=== PATIENT | male | born 1970 | race Hispanic/Latino ===

== ENCOUNTER 2017-12-11 19:29 | Emergency (ER) | payer SELFPAY ==
[2017-12-11] MEDS ORDERED: CYCLOBENZAPRINE HCL 10 MG TABLET ONE (19:49)
[2017-12-11] MEDS ORDERED: KETOROLAC TROMETHAMINE 60 MG/2 ML VIAL ONE (19:49)
[2017-12-11] MEDS ORDERED: DEXAMETHASONE SOD PHOSPHATE 10MG/ML 1ML VIAL ONE (19:49)
[2017-12-11] MEDS ORDERED: ONDANSETRON ODT 4 MG TAB ONE (19:50)
[2017-12-11] MEDS ORDERED: MORPHINE SULFATE 4 MG/1ML SYG ONE (19:50)
== END 2017-12-11 20:19 | disposition home or self-care (01) ==
LOC: EDH 19:29
DX: M54.5 Low back pain (principal); Z98.890 Other specified postprocedural states; Z72.0 Tobacco use
CPT/HCPCS: 72100; 96372 ×3; 99284; J1100; J1885; J2270

== ENCOUNTER 2017-12-12 21:14 | Emergency (ER) | payer SELFPAY ==
[2017-12-12] MEDS ORDERED: ASPIRIN 325 MG TABLET ONE (21:27)
[2017-12-12 21:39] LABS: BASOPHILS % (AUTO) 0.2 % (0.0-5.0); EOSINOPHILS % (AUTO) 0.2 % (0.0-8.0); HEMATOCRIT 43.2 % (42-54); LYMPHOCYTES % (AUTO) 12.5 % (21.0-51.0); MEAN CORPUSCULAR HEMOGLOBIN 29.5 pg (27.0-33.0); MEAN CORPUSCULAR HGB CONC 33.8 g/dL (32.0-36.0); MEAN CORPUSCULAR VOLUME 87.3 fL (79-99); MONOCYTES % (AUTO) 5.4 % (3.0-13.0); NEUTROPHILS % (AUTO) 81.7 % (40.0-77.0); PLATELET COUNT (AUTO) 267 K/uL (130-400); RED BLOOD CELL COUNT(AUTO) 4.95 MIL/uL (4.50-6.20); RED CELL DISTRIBUTION WIDTH 14.5 % (11.0-15.5); WHITE BLOOD COUNT (AUTO) 18.2 K/uL (4.8-10.8)
[2017-12-12 21:52] LABS: INR 0.95 (0.85-1.15)
[2017-12-12 21:55] LABS: POTASSIUM 3.5 mmol/L (3.5-5.1)
[2017-12-12 22:08] LABS: ALBUMIN 3.6 g/dL (3.5-5.0); BILIRUBIN,TOTAL 0.3 mg/dL (0.2-1.0); CREATINE KINASE MB 2.2 ng/mL (0.5-3.6); TOTAL PROTEIN, SERUM 7.4 g/dL (6.0-8.3)
[2017-12-12 23:44] LABS: APPEARANCE,URINE Clear (CLEAR); BILIRUBIN,URINE Negative (NEGATIVE); COLOR,URINE Yellow (YELLOW); GLUCOSE, URINE (UA) Negative (NEGATIVE); KETONES,URINE Negative (NEGATIVE); LEUKOCYTE ESTERASE ,URINE Trace (NEGATIVE); NITRATE,URINE Negative (NEGATIVE); OCCULT BLOOD,URINE Small (NEGATIVE); PROTEIN,URINE Negative (NEGATIVE)
[2017-12-13 00:33] LABS: AMORPHOUS SEDIMENT,UR Few /LPF (None Seen); BACTERIA,URINE Few /HPF (None Seen); CALCIUM OXALATE CRYSTALS,UR Rare /LPF (None Seen); SQUAMOUS EPITHELIAL CELL,UR 0-2 /HPF (0-2)
== END 2017-12-13 01:30 | disposition home or self-care (01) ==
LOC: EDH 21:14
DX: R07.89 Other chest pain (principal); K80.20 Calculus of gallbladder without cholecystitis without obstruction; Z72.0 Tobacco use
CPT/HCPCS: 36415; 71045; 76705; 80053; 81001; 82550; 82553; 83690; 83874; 84484; 85025; 85610; 85730; 93005

== ENCOUNTER 2018-01-03 18:05 | Emergency (ER) | payer OTHER | END 2018-01-03 19:07 | disposition home or self-care (01) | LOC: EDH 18:05 | DX: J06.9 Acute upper respiratory infection, unspecified (principal); R50.9 Fever, unspecified; Z72.0 Tobacco use | CPT/HCPCS: 99281 ==

== ENCOUNTER → 2018-06-27 | Outpatient (CLI) | payer MEDICAID, MEDICARE | END | disposition home or self-care (01) | LOC: RAH 13:00 | PROVIDERS: ATTEND Family Medicine | DX: N43.3 Hydrocele, unspecified (principal); N50.3 Cyst of epididymis; R05 Cough | CPT/HCPCS: 76870 ==

== ENCOUNTER 2018-07-04 14:43 | Emergency (ER) | payer MEDICAID ==
[2018-07-04 15:10] LABS: EOSINOPHILS % (AUTO) 2.3 % (0.0-8.0); HEMATOCRIT 42.5 % (42-54); MEAN CORPUSCULAR HEMOGLOBIN 30.4 pg (27.0-33.0); MEAN CORPUSCULAR HGB CONC 34.5 g/dL (32.0-36.0); MEAN CORPUSCULAR VOLUME 88.1 fL (79-99); MONOCYTES % (AUTO) 5.4 % (3.0-13.0); NEUTROPHILS % (AUTO) 69.3 % (40.0-77.0); PLATELET COUNT (AUTO) 261 K/uL (130-400); RED BLOOD CELL COUNT(AUTO) 4.83 MIL/uL (4.50-6.20); RED CELL DISTRIBUTION WIDTH 14.3 % (11.0-15.5); WHITE BLOOD COUNT (AUTO) 7.9 K/uL (4.8-10.8)
[2018-07-04 15:21] LABS: CREATININE 0.9 mg/dL (0.5-1.5); POTASSIUM 4.2 mmol/L (3.5-5.1)
[2018-07-04] MEDS ORDERED: ONDANSETRON HCL 4 MG/2 ML VIAL ONE (15:27)
[2018-07-04] MEDS ORDERED: HYOSCYAMINE SULFATE 0.125 MG TAB.SUBL SL ONE (15:27)
[2018-07-04] MEDS ORDERED: SODIUM CHLORIDE 0.9% 1000ML 1,000 ML IV ONE (15:27)
[2018-07-04] MEDS ORDERED: MORPHINE SULFATE 2 MG/ML 1ML SYG ONE (15:28)
[2018-07-04 15:29] LABS: ALBUMIN 3.6 g/dL (3.5-5.0); BILIRUBIN,TOTAL 0.4 mg/dL (0.2-1.0); TOTAL PROTEIN, SERUM 7.4 g/dL (6.0-8.3)
[2018-07-04 15:33] LABS: INR 0.95 (0.85-1.15); PARTIAL THROMBOPLASTIN TIME 28.2 SEC (26.3-35.5)
[2018-07-04 15:48] LABS: APPEARANCE,URINE Clear (CLEAR); BILIRUBIN,URINE Negative (NEGATIVE); COLOR,URINE Yellow (YELLOW); GLUCOSE, URINE (UA) Negative (NEGATIVE); KETONES,URINE Negative (NEGATIVE); LEUKOCYTE ESTERASE ,URINE Negative (NEGATIVE); NITRATE,URINE Negative (NEGATIVE); OCCULT BLOOD,URINE Trace (NEGATIVE); PH,URINE 7.5 (5.0-8.0); PROTEIN,URINE Negative (NEGATIVE)
[2018-07-04] MEDS ORDERED: IOHEXOL-350 75 ML VIAL IV ONE (15:49)
[2018-07-04 16:03] LABS: WBC,URINE 0-1 /HPF (0-1)
[2018-07-04 16:05] LABS: BACTERIA,URINE Rare /HPF (None Seen)
[2018-07-04 16:06] LABS: SQUAMOUS EPITHELIAL CELL,UR Rare /HPF (0-2)
== END 2018-07-04 18:15 | disposition home or self-care (01) ==
LOC: EDH 14:43
DX: R55 Syncope and collapse (principal); R10.9 Unspecified abdominal pain; K62.5 Hemorrhage of anus and rectum; Z79.2 Long term (current) use of antibiotics; Z79.899 Other long term (current) drug therapy; Z72.0 Tobacco use
CPT/HCPCS: 36415; 74177; 80053; 81001; 83690; 84484; 85025; 85610; 85730; 93005; 96361; 96374; 96375; 99285; J2405; J7030; Q9967

== ENCOUNTER 2018-07-14 22:55 | Emergency (ER) | payer MEDICAID | END 2018-07-15 01:46 | disposition home or self-care (01) | LOC: EDH 22:55 | DX: L50.0 Allergic urticaria (principal); Z72.0 Tobacco use | CPT/HCPCS: 96372 ==

== ENCOUNTER → 2018-09-27 | Outpatient (CLI) | payer MEDICAID | END | disposition home or self-care (01) | LOC: RAH 15:08 | PROVIDERS: ATTEND Family Medicine | DX: R05 Cough (principal) | CPT/HCPCS: 71045 ==

== ENCOUNTER 2020-11-10 22:23 | Emergency (ER) | payer MEDICAID ==
[2020-11-10] MEDS ORDERED: ONDANSETRON HCL 4 MG/2 ML VIAL ONE (22:44)
[2020-11-10] MEDS ORDERED: SODIUM CHLORIDE 0.9% 1000ML 1,000 ML IV ONE (22:45)
[2020-11-10 23:08] LABS: BASOPHILS % (AUTO) 0.9 % (0.0-5.0); EOSINOPHILS % (AUTO) 8.6 % (0.0-8.0); HEMATOCRIT 46.6 % (42-54); LYMPHOCYTES % (AUTO) 22.9 % (21.0-51.0); MEAN CORPUSCULAR HEMOGLOBIN 29.6 pg (27.0-33.0); MEAN CORPUSCULAR HGB CONC 33.9 g/dL (32.0-36.0); MEAN CORPUSCULAR VOLUME 87.3 fL (79-99); MONOCYTES % (AUTO) 5.3 % (3.0-13.0); PLATELET COUNT (AUTO) 259 K/uL (130-400); RED BLOOD CELL COUNT(AUTO) 5.34 MIL/uL (4.50-6.20); RED CELL DISTRIBUTION WIDTH 13.3 % (11.0-15.5); WHITE BLOOD COUNT (AUTO) 9.7 K/uL (4.8-10.8)
[2020-11-10 23:10] LABS: APPEARANCE,URINE Clear (CLEAR); BILIRUBIN,URINE Negative (NEGATIVE); COLOR,URINE Yellow (YELLOW); GLUCOSE, URINE (UA) Negative (NEGATIVE); KETONES,URINE Negative (NEGATIVE); LEUKOCYTE ESTERASE ,URINE Negative (NEGATIVE); NITRATE,URINE Negative (NEGATIVE); OCCULT BLOOD,URINE Trace (NEGATIVE); PROTEIN,URINE Negative (NEGATIVE); UROBILINOGEN,URINE 0.2 mg/dL (0.2-1.0)
[2020-11-10 23:13] LABS: BACTERIA,URINE None Seen /HPF (None Seen); RBC,URINE None Seen /HPF (0-1); WBC,URINE None Seen /HPF (0-1)
[2020-11-10 23:18] LABS: AMPHET/METH SCREEN,URINE NEGATIVE (NEGATIVE); BARBITURATE SCREEN, URINE NEGATIVE (NEGATIVE); BENZODIAZEPINES SCREEN,URINE NEGATIVE (NEGATIVE); CANNABINOID SCREEN,URINE NEGATIVE (NEGATIVE); COCAINE SCREEN,URINE NEGATIVE (NEGATIVE); OPIATE SCREEN,URINE NEGATIVE (NEGATIVE); PHENCYCLIDINE SCREEN,URINE NEGATIVE (NEGATIVE)
[2020-11-10] MEDS ORDERED: ORPHENADRINE CITRATE 30 MG/ML ML ONE (23:18)
[2020-11-10] MEDS ORDERED: KETOROLAC TROMETHAMINE 30MG/ML ONE (23:19)
[2020-11-10 23:23] LABS: PROTHROMBIN TIME 10.9 SEC (9.6-11.6)
[2020-11-10 23:25] LABS: PARTIAL THROMBOPLASTIN TIME 25.3 SEC (26.3-35.5)
[2020-11-10 23:27] LABS: POTASSIUM 3.9 mmol/L (3.5-5.1)
[2020-11-10 23:31] LABS: ALBUMIN 4.1 g/dL (3.5-5.0); BILIRUBIN,TOTAL 0.3 mg/dL (0.2-1.0); TOTAL PROTEIN, SERUM 7.9 g/dL (6.0-8.3)
[2020-11-11] MEDS ORDERED: PANTOPRAZOLE 40 MG/VIAL ONE (00:37)
== END 2020-11-11 00:46 | disposition home or self-care (01) ==
LOC: EDH 22:23
DX: B34.9 Viral infection, unspecified (principal); R11.0 Nausea; K29.00 Acute gastritis without bleeding; S61.200A Unspecified open wound of right index finger without damage to nail, initial encounter; S00.81XA Abrasion of other part of head, initial encounter; Z20.822 Contact with and (suspected) exposure to COVID-19; E86.9 Volume depletion, unspecified; X58.XXXA Exposure to other specified factors, initial encounter; Y93.89 Activity, other specified; Y92.89 Other specified places as the place of occurrence of the external cause; Y99.8 Other external cause status
CPT/HCPCS: 36415; 71045; 80053; 80305; 81001; 82550; 83605; 84484; 85025; 85610; 85730; 87040 ×2; 87077; 87186; 87426; 87804 ×2; 93005; 96361; 96374; 96375; 99285; C9113; J1885; J2360; J2405; J7030; U0003

== ENCOUNTER 2022-07-15 17:21 | Emergency (ER) | payer MEDICAID ==
[~2022-07-15] VITALS: Ht 172.7 cm; Wt 102.1 kg
[2022-07-15] MEDS ORDERED: KETOROLAC 15MG/ML VIAL (15MG/ML) IM ONE (18:00)
[2022-07-15] MEDS ORDERED: KETOROLAC 15MG/ML VIAL (15MG/ML) ONE (18:16)
[2022-07-15] MEDS ORDERED: CYCLOBENZAPRINE HCL 10 MG TABLET PO ONE (18:30)
[2022-07-15] MEDS ORDERED: KETO10TA2 PO (20:05)
[2022-07-15] MEDS ORDERED: CYCL-309 PO (20:05)
[2022-07-15 20:07] VITALS: BP 129/70
== END 2022-07-15 20:12 | disposition home or self-care (01) ==
LOC: EDH 17:21
DX: M62.830 Muscle spasm of back (principal); E11.9 Type 2 diabetes mellitus without complications; W06.XXXA Fall from bed, initial encounter; Y93.89 Activity, other specified; Y92.89 Other specified places as the place of occurrence of the external cause; Y99.8 Other external cause status
CPT/HCPCS: 99284; 73521; 73562; 72100; 96372; J1885

== ENCOUNTER 2023-07-12 02:18 | Emergency (ER) | payer MEDICAID ==
[~2023-07-12] VITALS: Ht 172.7 cm; Wt 96.6 kg
[~2023-07-12 02:18] MED LIST: CYCL-309 PO; KETO10TA2 PO
[2023-07-12] MEDS ORDERED: HYD25 PO (03:39)
[2023-07-12] MEDS ORDERED: ELIM560C TP (03:39)
[2023-07-12 04:14] VITALS: BP 129/70; PULSE 57; RESP 18; O2SAT 99
== END 2023-07-12 04:15 | disposition home or self-care (01) ==
LOC: EDH 02:18
DX: B86 Scabies (principal); E11.9 Type 2 diabetes mellitus without complications; F17.200 Nicotine dependence, unspecified, uncomplicated; Z79.899 Other long term (current) drug therapy

== ENCOUNTER 2025-04-07 21:27 | Emergency (ER) | payer MEDICAID, OTHER ==
[~2025-04-07] VITALS: Ht 175.3 cm; Wt 96.2 kg
[~2025-04-07 21:27] MED LIST changes: +ELIM560C TP; +HYD25 PO
[2025-04-07 21:40] VITALS: BP 145/72; PULSE 88; RESP 17; TEMP 98.5; O2SAT 98
--- NOTE | 2025-04-07 21:56 | NUR ---
PT REFUSING TREATMENT, REQUESTING TO LEAVE AMADR. LOPEZ AWARE. NO SIGNS OF ACUTE DISTRESS NOTED, PT STATED HE FEELS BETTER AND WANTS TO LEAVE
--- NOTE | 2025-04-07 21:59 | ERN ---
General Chief Complaint: Dizzy/Light Headed Stated Complaint: NEAR SYNCOPE AFTER WORKING OUTSIDE Time Seen by MD: 21:42 History of Present Illness Initial Comments 54-year-old male who comes in today with a chief complaint of dizziness. Patient apparently was washed in his trucks when he got overheated. Patient reports EMS was called and he was brought to the emergency department. Patient at this time does not want to be treated and feels better he would like to leave against medical advice Allergies: Coded Allergies: No Known Allergies (Unverified Allergy, Unknown, 06/18/19) Home Meds Active Scripts Hydroxyzine HCl (Atarax) 25 Mg Tab, 25 MG PO TIDP PRN for itching, #30 TAB Prov:ALLA VIGIL MD 07/12/23 Permethrin (Elimite/Acticin 5% Cream) 5 % Crm, 1 APPL TP ONCE, #1 APPL Prov:ALLA VIGIL MD 07/12/23 Ketorolac Tromethamine (Ketorolac Tromethamine) 10 Mg Tablet, 10 MG PO every 6 hours for pain, #16 TAB Prov:RABIA FAM PUMPER HAND 07/15/22 Cyclobenzaprine HCl (Cyclobenzaprine HCl) 10 Mg Tablet, 10 MG PO every 8 hours for spasm pain for 7 Days, #21 TAB Prov:RABIA FAM PUMPER HAND 07/15/22 Past Medical History Past Medical History: Diabetes-Type II Past Surgical History: Other Surgical History Other: C SPINE FX WITH REPAIR, R MENISICUS AND ACL Family History Family History: Negative Social History Social History: Smokers, ETOH, Lives with family ROS Dictation Unable to do given decision to go AMA Physical Exam Physical Exam Dictation Unable to conduct exam given decision to go AMA MDM Patient's will be leaving AMA ED Course Orders Procedure Category Date Status Time Cbc With Differential LAB 04/07/25 Logged 21:39 Chest 1vw RAD 04/07/25 Logged 21:39 12 Lead Ekg Tracing- EKG 04/07/25 Logged Technical 21:39 Creatine Kinase, Total LAB 04/07/25 Logged 21:39 Troponin I High LAB 04/07/25 Logged Sensitivity 21:39 Urinalysis Profile LAB 04/07/25 Logged 21:39 Comprehensive LAB 04/07/25 Logged Metabolic Panel 21:39 Vital Signs Date Time Temp Pulse Resp B/P (MAP) Pulse Ox O2 Delivery O2 Flow Rate FiO2 04/07/25 21:34 97.5 98 17 134/71 98 Nasal Cannula 2.0 DX & DISP Disposition: AMA Departure Impression: Primary Impression: Dizziness Condition: Stable Referrals: BYRON GARNETT MD (PCP) FREDI LOPEZ MD Apr 07, 2025 21:59
== END 2025-04-07 22:00 | disposition left against medical advice (07) ==
LOC: EDH 21:27
DX: R42 Dizziness and giddiness (principal); E11.9 Type 2 diabetes mellitus without complications; F17.200 Nicotine dependence, unspecified, uncomplicated; Z79.899 Other long term (current) drug therapy
CPT/HCPCS: 99281; 99283